=== PATIENT | male | born 1955 | race Caucasian/White ===

== ENCOUNTER 2017-06-23 12:06 | Outpatient (CLI) | payer MEDICAID ==
[2017-06-23 13:14] LABS: BASOPHILS % (AUTO) 0.3 %; EOSINOPHILS # (AUTO) 0.1 10^3/uL (0.0-0.7); EOSINOPHILS % (AUTO) 1.6 %; HCT - HEMATOCRIT 42.6 % (42.0-52.0); HGB - HEMOGLOBIN 14.4 g/dL (14.0-18.0); LYMPHOCYTES % (AUTO) 43.2 %; MEAN CORPUSCULAR HEMOGLOBIN 30.8 pg (27.0-31.0); MEAN CORPUSCULAR HGB CONC 33.8 g/dL (32.0-36.0); MEAN CORPUSCULAR VOLUME 91.2 fL (80.0-94.0); MEAN PLATELET VOLUME 8.5 fL (7.4-11.4); MONOCYTES # (AUTO) 0.6 10^3/uL (0.0-1.0); MONOCYTES % (AUTO) 8.9 %; NEUTROPHILS # (AUTO) 3.2 10^3/uL (1.5-6.6); NUCLEATED RED BLOOD CELLS AUTO 0.1 /100WBC; RED BLOOD COUNT 4.67 10^6/uL (4.70-6.10); RED CELL DISTRIBUTION WIDTH 13.9 % (12.0-15.0); UNCORRECTED WHITE BLOOD COUNT 6.9 x10^3/uL; WHITE BLOOD COUNT 6.9 x10^3/uL (4.8-10.8)
[2017-06-23 13:35] LABS: HEMOGLOBIN A1C 0.56 g/dL
[2017-06-23 13:46] LABS: ALBUMIN/GLOBULIN RATIO 1.3 (1.0-2.2); BILIRUBIN,TOTAL 0.9 mg/dL (0.2-1.0); BUN - BLOOD UREA NITROGEN 21 mg/dL (6-20); CALCIUM 9.4 mg/dL (8.5-10.3); CARBON DIOXIDE - CO2 26 mmol/L (21-32); CHLORIDE 106 mmol/L (101-111); CHOL/HDL RATIO 3.3 (<5.0); CHOLESTEROL 251 mg/dL; GFR - MDRD 76 (>89); GLUCOSE 87 mg/dL (70-100); HDL CHOLESTEROL 75 mg/dL; LDL/HDL RATIO 2.1 (<3.6); POTASSIUM 4.5 mmol/L (3.5-5.0); SODIUM 141 mmol/L (135-145); TOTAL PROTEIN 7.5 g/dL (6.7-8.2); TRIGLYCERIDES 97 mg/dL; VLDL CHOLESTEROL 19 mg/dL
== END 2017-06-23 12:07 | disposition home or self-care (01) ==
LOC: LAB.WCP 12:06
PROVIDERS: ATTEND Family Medicine
DX: Z00.00 Encounter for general adult medical examination without abnormal findings (principal); Z12.5 Encounter for screening for malignant neoplasm of prostate
CPT/HCPCS: 36415; 80053; 80061; 83036; 84153; 84443; 85025

== ENCOUNTER 2017-10-18 08:05 | Day surgery (SDC) | payer MEDICAID ==
[2017-10-18] MEDS ORDERED: LACTATED RINGERS 1,000 ML IV ONE (08:48)
[2017-10-18] MEDS ORDERED: fentaNYL 100 MCG/2 ML VIAL IVP ONE (09:20)
[2017-10-18] MEDS ORDERED: MIDAZOLAM 2 MG/2 ML VIAL IVP ONE (09:20)
[2017-10-18 10:14] VITALS: BP 132/78
== END 2017-10-18 08:06 | disposition home or self-care (01) ==
LOC: SDS 08:05
PROVIDERS: ATTEND Surgery
PROC: 0DJD8ZZ Inspection of Lower Intestinal Tract, Via Natural or Artificial Opening Endoscopic (ICD-10-PCS; principal; 2017-10-18 09:15)
DX: Z12.11 Encounter for screening for malignant neoplasm of colon (principal); K57.30 Diverticulosis of large intestine without perforation or abscess without bleeding; I10 Essential (primary) hypertension; Z87.891 Personal history of nicotine dependence
CPT/HCPCS: 45378; J7120

== ENCOUNTER 2018-08-22 15:57 | Outpatient (CLI) | payer OTHER, MEDICAID ==
--- NOTE | 2018-08-23 10:29 | CT Report ---
Reason: ASEPTIC NECROSIS, SCAPHOID Procedure Date: 08/22/2018 Accession Number: [id number] / [id number] Procedure: CT - Upper Extremity Right W/O CPT Code: FULL RESULT: EXAM: RIGHT CLAVICLE/STERNOCLAVICULAR JOINT CT WITHOUT CONTRAST EXAM DATE: 08/22/2018 04:42 PM. CLINICAL HISTORY: Aseptic necrosis, scaphoid. COMPARISON: WRIST 4 VIEW RT 07/19/2018 10:45 AM. TECHNIQUE: Thin-section axial images were acquired of the clavicle(s)/sternoclavicular joint(s) without contrast. Post-processing: Coronal and sagittal reformats. Other: None. In accordance with CT protocol optimization, one or more of the following dose reduction techniques were utilized for this exam: automated exposure control, adjustment of mA and/or KV based on patient size, or use of iterative reconstructive technique. FINDINGS: Bones and Articular Surfaces: Chronic appearing well-corticated fracture of the scaphoid waist with pseudoarthrosis. Separate transverse oblique fracture through the proximal pole of the scaphoid at the proximal dorsal aspect. No bridging across this fracture and slight sclerosis at the fracture margins. Potentially a subacute or possibly chronic fracture. Widening of the scapholunate interval. Patchy areas of subcortical cyst formation involving all of the carpal bones. Small amount of sclerotic change involving the proximal fragments of the scaphoid may reflect some degree of AVN. No acute fracture demonstrated. Mild joint space narrowing and marginal osteophytes at the fifth CMC articulation as well as the first MCP joint. Joint space narrowing with subchondral sclerosis and osteophyte at the radiolunate and to a lesser degree radioscaphoid articulations. Mild negative ulnar variance. Soft Tissues: The visualized flexor and extensor tendons appear intact. No significant muscle atrophy or fatty replacement within the field of view. IMPRESSION: 1. 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 2. Separate oblique fracture at the proximal pole of the scaphoid at the dorsal aspect. This fracture could be subacute or chronic. 3. Scapholunate diastases. 4. Osteoarthritis as described. [facility] ADDENDUM: 09/07/18 18:05 Correction: Exam title: CT of the right wrist without contrast. TECHNIQUE: Thin section axial noncontrast CT images obtained through the wrist with sagittal and coronal image reformatting. In accordance with CT protocol optimization, one or more of the following dose reduction techniques were utilized for this exam: automated exposure control, adjustment of mA and/or KV based on patient size, or use of iterative reconstructive technique.
== END 2018-08-22 15:58 | disposition home or self-care (01) ==
LOC: DI 15:57
PROVIDERS: ATTEND Orthopaedic Surgery
DX: S62.001A Unspecified fracture of navicular [scaphoid] bone of right wrist, initial encounter for closed fracture (principal); M19.031 Primary osteoarthritis, right wrist; M87.039 Idiopathic aseptic necrosis of unspecified carpus

== ENCOUNTER 2022-09-11 15:19 | Emergency (ER) | payer MEDICARE, MEDICAID ==
[2022-09-11 16:07] LABS: BASOPHILS # (AUTO) 0.1 10^3/uL (0.0-0.1); BASOPHILS % (AUTO) 0.7 %; EOSINOPHILS # (AUTO) 0.1 10^3/uL (0.0-0.7); EOSINOPHILS % (AUTO) 0.7 %; HCT - HEMATOCRIT 38.9 % (42.0-52.0); HGB - HEMOGLOBIN 12.5 g/dL (14.0-18.0); LYMPHOCYTES # (AUTO) 3.4 10^3/uL (1.5-3.5); LYMPHOCYTES % (AUTO) 36.5 %; MEAN CORPUSCULAR HEMOGLOBIN 30.9 pg (27.0-31.0); MEAN CORPUSCULAR HGB CONC 32.1 g/dL (32.0-36.0); MEAN PLATELET VOLUME 9.7 fL (7.4-11.4); MONOCYTES # (AUTO) 1.1 10^3/uL (0.0-1.0); MONOCYTES % (AUTO) 11.8 %; NEUTROPHILS # (AUTO) 4.6 10^3/uL (1.5-6.6); PLT - PLATELET COUNT 235 10^3/uL (130-450); RED BLOOD COUNT 4.05 10^6/uL (4.70-6.10); RED CELL DISTRIBUTION WIDTH 11.9 % (12.0-15.0); WHITE BLOOD COUNT 9.2 x10^3/uL (4.8-10.8)
--- NOTE | 2022-09-11 16:27 | XRAY Report ---
PROCEDURE: Chest 1 View X-Ray INDICATIONS: Chest Pain TECHNIQUE: One view of the chest was acquired. COMPARISON: None. FINDINGS: Surgical changes and devices: None. Lungs and pleura: No pleural effusions or pneumothorax. Lungs are clear. Mediastinum: Mediastinal contours appear normal. Heart size is normal. Bones and chest wall: No suspicious bony lesions. Age-appropriate degenerative changes are seen. O verlying soft tissues appear unremarkable. IMPRESSION: Unremarkable single view chest for age. Reviewed by: Taye Merchant MD on 09/11/2022 3:26 PM [facility] Approved by: Taye Merchant MD on 09/11/2022 3:26 PM [facility] Station ID: [id number]
[2022-09-11 16:43] LABS: ALBUMIN 3.4 g/dL (3.2-5.5); BILIRUBIN,TOTAL 0.9 mg/dL (0.2-1.0); CALCIUM 9.1 mg/dL (8.5-10.3); CREATININE 0.9 mg/dL (0.6-1.2); POTASSIUM 4.6 mmol/L (3.5-5.0); TOTAL PROTEIN 6.9 g/dL (6.7-8.2)
--- NOTE | 2022-09-11 18:37 | ED Physician Documentation ---
History of Present Illness - Stated complaint Stated Complaint: CHEST PRESSURE/PX - Chief complaint Chief Complaint: Resp - History obtained from History obtained from: Patient, Family - Additonal information Additional information: This is a 67-year-old male with a past medical history of daily alcohol use, who presents with right chest wall pain after a fit of coughing. Patient states he has had a cough for about a year, without any improvement or worsening, he denies any shortness of breath or the other chest pain and pain is localized to the right chest wall. He had a fit of coughing several days ago in which he started to develop right chest wall pain. The pain does not radiate, and is not exertional and he denies shortness of breath.He has not had a fever, congestion or other URI symptoms.He is also reporting an 80 pound unintentional weight loss over the last several months. He states he has not changed his diet at all, no new exercising or other concerns. He denies any change in bowel or bladder, No night sweats, no fever or chills. is also reporting that patient has a generalized tremor, its worse in the morning but present frequently throughout the day. It is in both arms, and seems more intentional although can happen at any point time. He has not had any gait disturbance, no falls, No confusion or change in mental status. He has not had any head injuries. The patient states he drinks about 3 gin and tonics a day though states he sometimes drinks the entire bottle and has done so every day, he has not attempted to stop. concerned as the patient has not seen doctor in about 10 to 15 years. Review of Systems Ten Systems: 10 systems reviewed and negative PD PAST MEDICAL HISTORY - Past Medical History Cardiovascular: None Respiratory: None Endocrine/Autoimmune: None GI: None : None HEENT: None Psych: None Musculoskeletal: Osteoarthritis Derm: None Other Past Medical History: Excessive alcohol use - Present Medications Home Medications: Ambulatory Orders Medication Instructions Recorded Confirmed No Known Home Medications 10/17/17 10/18/17 - Allergies Allergies/Adverse Reactions: Allergies Allergy/AdvReac Type Severity Reaction Status Date / Time No Known Drug Allergies Allergy Verified 10/17/17 13:54 PD ED PE NORMAL - Vitals Vital signs reviewed: Yes - General General: Alert and oriented X 3, No acute distress, Well developed/nourished - HEENT HEENT: Atraumatic, PERRL, EOMI, Moist mucous membranes, Pharynx benign - Neck Neck: Supple, no meningeal sign, No adenopathy - Cardiac Cardiac: RRR, No murmur, No gallop, No rub - Respiratory Respiratory: No respiratory distress, Clear bilaterally - Abdomen Abdomen: Normal bowel sounds, Soft, Non tender, Non distended - Back Back: No CVA TTP, No spinal TTP - Derm Derm: Normal color, Warm and dry, No rash - Extremities Extremities: No deformity, No tenderness to palpate, Normal ROM s pain, No edema, No calf tenderness / cord, Other (Bilateral upper extremity tremor) - Neuro Neuro: Alert and oriented X 3 Eye Opening: Spontaneous Motor: Obeys Commands Verbal: Oriented GCS Score: 15 Results - Vitals Vitals: Vital Signs - 24 hr 09/11/22 09/11/22 09/11/22 15:28 15:42 17:42 Temperature 36.8 C 36.8 C Heart Rate 75 75 68 Respiratory 18 18 16 Rate Blood Pressure 163/61 H 163/61 H 153/85 H O2 Saturation 100 100 98 09/11/22 19:00 Temperature Heart Rate 63 Respiratory 16 Rate Blood Pressure 150/80 H O2 Saturation 98 Oxygen O2 Source Room air - Labs Labs: Laboratory Tests 09/11/22 09/11/22 09/11/22 16:03 16:03 16:03 WBC 9.2 RBC 4.05 L Hgb 12.5 L Hct 38.9 L MCV 96.0 H MCH 30.9 MCHC 32.1 RDW 11.9 L Plt Count 235 MPV 9.7 Neut # (Auto) 4.6 Lymph # (Auto) 3.4 Leon # (Auto) 1.1 H Eos # (Auto) 0.1 Baso # (Auto) 0.1 Absolute Nucleated RBC 0.00 Nucleated RBC % 0.0 Sodium 137 Potassium 4.6 Chloride 101 Carbon Dioxide 28 Anion Gap 8.0 BUN 19 Creatinine 0.9 Estimated GFR (MDRD) 85 L Glucose 110 H Calcium 9.1 Total Bilirubin 0.9 AST 24 ALT 20 Alkaline Phosphatase 65 Troponin I High Sens 2.8 Total Protein 6.9 Albumin 3.4 Globulin 3.5 Albumin/Globulin Ratio 1.0 Lipase 40 PD MEDICAL DECISION MAKING - ED course Complexity details: reviewed results, re-evaluated patient, considered differential, d/w patient, d/w family ED course: This is a 67-year-old male with past medical history of daily alcohol use who presented Primarily with the right chest wall pain after a fit of coughing but is also reporting a bout year-long history of cough as well as weight loss and generalized upper extremity tremors. He is well-appearing on physical exam with stable vital signs though blood pressure somewhat elevated. He is actually well on room air. We obtained an x-ray which is negative for any acute findings, his EKG and troponin are also negative. Generalized labs are stable. Given his weight loss however and daily alcohol use I did have concern for malignancy this is a pain and a CT abdomen pelvis which showed a possible bladder mass or irregularity. The patient was advised of these findings and recommended that he follow-up outpatient with urology. He also does not have a primary care provider and needs to establish 1 given his multiple issues that are long-term including tremor, weight loss and chronic cough.The patient does have a long history Of daily alcohol use no no signs of withdrawal on exam today, he was encouraged to consider an alcohol rehab program or titrating himself down off alcohol. I reviewed return precautions in detail with the patient. Departure - Departure Disposition: 01 Home, Self Care Clinical Impression: Chest wall pain, Bladder mass, Excessive drinking of alcohol Condition: Good Instructions: ED Strain Chest Wall Follow-Up: [facility] [Provider Group] Nadia Nair MD [Physician No Access] - Comments: You presented due to right chest wall pain after coughing. I suspect this is a muscle strain as there are no acute findings on your chest x-ray or work-up today. We did have her do additional imaging due to your unexplained weight loss. The CT scan of your abdomen showed a possible area of irregularity in the bladder which will need to be followed up by urology.This can be done on an outpatient basis but should be done as soon as you are able to schedule an appointment. He will also need to establish care with a primary care provider, you may start with the [facility] primary care clinic to establish care with a primary doctor. I have also listed a urologist below. Discharge Date/Time: 09/11/22 19:26
[2022-09-11] MEDS ORDERED: iohexoL-300 100 ML VIAL ONE (18:41)
[2022-09-11] MEDS ORDERED: iohexoL-300 100 ML VIAL IVP ONE (19:03)
--- NOTE | 2022-09-11 19:08 | CT Report ---
PROCEDURE: ABDOMEN/PELVIS W INDICATIONS: unintentional 80lb weight loss, eval for malignanc CONTRAST: 100ml omni 200 TECHNIQUE: After the administration of intravenous contrast, 5 mm thick sections acquired from the diaphragms to the symphysis. 5 mm thick coronal and sagittal reformats were acquired. For radiation dose reducti on, the following was used: automated exposure control, adjustment of mA and/or kV according to adrián ent size. COMPARISON: None. FINDINGS: Image quality: Excellent. ABDOMEN: Lung bases: Lung bases are clear. Heart size is normal. Solid organs: Liver and spleen are normal in size and enhancement. Gallbladder normal. Biliary sys tem is non dilated. Pancreas enhances normally. No adrenal nodules. Kidneys demonstrate normal siz e and enhancement, without hydronephrosis. Peritoneum and bowel: Bowel loops demonstrate normal wall thickness and caliber. No free fluid or a ir. Nodes and vessels: No retroperitoneal or mesenteric adenopathy by size criteria. Aorta and inferior vena cava are normal in size. Miscellaneous: No ventral hernias. PELVIS: Genitourinary: Asymmetric thickened urinary bladder wall most thickened anteriorly and superiorly. Miscellaneous: No inguinal hernias or adenopathy. Bones: No suspicious bony lesions. No vertebral body compression fractures. IMPRESSION: Asymmetric urinary bladder wall thickening suspicious for bladder carcinoma. Urology referral recomme nded. Reviewed by: Urbano Juarez MD on 09/11/2022 7:07 PM PST Approved by: Urbano Juarez MD on 09/11/2022 7:07 PM PST Station ID: [id number]
[2022-09-11 19:11] VITALS: BP 150/80
== END 2022-09-11 19:26 | disposition home or self-care (01) ==
LOC: ED 15:19
DX: R07.89 Other chest pain (principal); N32.9 Bladder disorder, unspecified
CPT/HCPCS: 36415; 71045; 74177; 80053; 83690; 84484; 85025; 93005; 99284; Q9967

== ENCOUNTER 2022-10-22 09:28 | Outpatient (CLI) | payer MEDICARE, MEDICAID ==
[2022-10-22 09:40] LABS: BASOPHILS # (AUTO) 0.1 10^3/uL (0.0-0.1); BASOPHILS % (AUTO) 1.4 %; EOSINOPHILS # (AUTO) 0.1 10^3/uL (0.0-0.7); EOSINOPHILS % (AUTO) 1.1 %; HCT - HEMATOCRIT 40.8 % (42.0-52.0); HGB - HEMOGLOBIN 13.4 g/dL (14.0-18.0); LYMPHOCYTES # (AUTO) 3.3 10^3/uL (1.5-3.5); LYMPHOCYTES % (AUTO) 51.7 %; MEAN CORPUSCULAR HEMOGLOBIN 31.6 pg (27.0-31.0); MEAN CORPUSCULAR HGB CONC 32.8 g/dL (32.0-36.0); MEAN CORPUSCULAR VOLUME 96.2 fL (80.0-94.0); MEAN PLATELET VOLUME 9.7 fL (7.4-11.4); MONOCYTES # (AUTO) 0.6 10^3/uL (0.0-1.0); MONOCYTES % (AUTO) 9.3 %; NEUTROPHILS # (AUTO) 2.3 10^3/uL (1.5-6.6); NEUTROPHILS % (AUTO) 36.3 %; PLT - PLATELET COUNT 204 10^3/uL (130-450); RED BLOOD COUNT 4.24 10^6/uL (4.70-6.10); RED CELL DISTRIBUTION WIDTH 12.7 % (12.0-15.0); WHITE BLOOD COUNT 6.4 x10^3/uL (4.8-10.8)
[2022-10-22 10:19] LABS: ALBUMIN 3.9 g/dL (3.2-5.5); ALBUMIN/GLOBULIN RATIO 1.1 (1.0-2.2); ALKALINE PHOSPHATASE 55 IU/L (42-121); ALT ALANINE AMINOTRANSFERASE 17 IU/L (10-60); AST ASPARTATE AMINOTRANSFERASE 22 IU/L (10-42); BILIRUBIN,TOTAL 0.8 mg/dL (0.2-1.0); BUN - BLOOD UREA NITROGEN 24 mg/dL (6-20); CALCIUM 9.7 mg/dL (8.5-10.3); CARBON DIOXIDE - CO2 27 mmol/L (21-32); CHLORIDE 102 mmol/L (101-111); CHOL/HDL RATIO 2.3 (<5.0); CHOLESTEROL 234 mg/dL; GFR - MDRD 75 (>89); GLUCOSE 91 mg/dL (70-100); HDL CHOLESTEROL 104 mg/dL; LDL CHOLESTEROL,CALCULATED 118 mg/dL; LDL/HDL RATIO 1.1 (<3.6); POTASSIUM 4.6 mmol/L (3.5-5.0); SODIUM 138 mmol/L (135-145); TOTAL PROTEIN 7.4 g/dL (6.7-8.2); TRIGLYCERIDES 59 mg/dL; VLDL CHOLESTEROL 12 mg/dL
[2022-10-22 10:23] LABS: THYROID STIMULATING HORMONE 1.03 uIU/mL (0.34-5.60)
== END 2022-10-22 09:29 | disposition home or self-care (01) ==
LOC: LAB 09:28
PROVIDERS: ATTEND Nurse Practitioner Family
DX: I10 Essential (primary) hypertension (principal); Z13.220 Encounter for screening for lipoid disorders; Z12.5 Encounter for screening for malignant neoplasm of prostate; R93.41 Abnormal radiologic findings on diagnostic imaging of renal pelvis, ureter, or bladder
CPT/HCPCS: 36415; 80053; 80061; 84443; 85025; G0103; 83721; 84153

== ENCOUNTER 2024-04-19 08:16 | Day surgery (SDC) | payer MEDICAID, MEDICARE ==
[2024-04-19] MEDS: LACTATED RINGERS 1,000 ML IV ONE ×2 (08:30→10:12)
--- NOTE | 2024-04-19 08:51 | ANESTHESIA ---
Pre-Anesthesia VS, & Labs - Diagnosis positive cologuard - Procedure colonoscopy Vital Signs: Temp Pulse Resp BP Pulse Ox O2 Flow Rate 36.2 C L 68 19 159/99 H 100 04/19/24 08:30 04/19/24 08:30 04/19/24 08:30 04/19/24 08:30 04/19/24 08:30 Height: 5 ft 10 in Weight (kg): 82.4 kg Body Mass Index: 26.0 BMI Classification: Overweight - NPO >8 hours Home Medications and Allergies Home Medications: Ambulatory Orders Losartan [Cozaar] 50 mg PO DAILY 04/18/24 Losartan [Cozaar] 50 mg PO DAILY 04/18/24 Allergies/Adverse Reactions: Allergies Allergy/AdvReac Type Severity Reaction Status Date / Time No Known Drug Allergies Allergy Verified 10/17/17 13:54 Anes History & Medical History - Anesthetic History Anesthesia Complications: reports: No previous complications - Medical History Cardiovascular: reports: Hypertension Pulmonary: reports: None Gastrointestinal: reports: None Urinary: reports: None Neuro: reports: None Musculoskeletal: reports: None Endocrine/Autoimmune: reports: None Skin: reports: None Smoking Status: Never smoker Psychosocial: reports: No issues indicated History of Cancer?: No - Surgical History General: reports: Cholecystectomy, Colonoscopy Urologic: reports: Bladder surgery Orthopedic: reports: Carpal Tunnel surgery Exam General: Alert, Oriented x3, Cooperative, No acute distress Dental: WNL Mouth Openin Fingerbreadth Neck Mobility: Normal Mallampati classification: III Thyromental Distance: 4-6 cm Mental/Cognitive Status: Alert/Oriented X3, Normal for patient Plan Anesthesia Type: General, Total IV Consent for Procedure(s) Verified and Reviewed: Yes Code Status: Attempt Resuscitation ASA classification: 2-Mild systemic disease Is this case an emergency?: No
[2024-04-19] MEDS ORDERED: PROPOFOL 500 MG/50 ML 500 MG/50 ML VIAL ONE (09:07)
[2024-04-19] MEDS ORDERED: LIDOCAINE-PF 2% 10 ML AMP SUBQ ONE (09:07)
--- NOTE | 2024-04-19 09:14 | HISTORY & PHYSICAL EXAMINATION ---
Chief Complaint - Chief Complaint Chief Complaint: here for colonoscopy History of Present Illness - History Obtained From Records Reviewed: yes History obtained from: pt Exam Limitations: none - History of Present Illness HPI Comment/Other: colonoscopy 2018 no polyps. no gi symptoms. recent cologuard positive. History - Past Medical History Cardiovascular: reports: Hypertension Respiratory: reports: None Neuro: reports: None Endocrine/Autoimmune: reports: None GI: reports: None : reports: None HEENT: reports: None Psych: reports: None Musculoskeletal: reports: None Derm: reports: None MRSA Hx?: No - Past Surgical History General: reports: Cholecystectomy, Colonoscopy Ortho: reports: Carpal Tunnel surgery Meds/Allgy - Home Medications Home Medications: Ambulatory Orders Medication Instructions Recorded Confirmed Losartan [Cozaar] 50 mg PO DAILY 04/18/24 04/19/24 - Allergies Allergies/Adverse Reactions: Allergies Allergy/AdvReac Type Severity Reaction Status Date / Time No Known Drug Allergies Allergy Verified 10/17/17 13:54 Review of Systems - Other Findings Other Findings: 10 pt ros as above otherwise unremarkable Exam - Vital Signs Vital Signs: Vital Signs x48h Temp Pulse Resp BP Pulse Ox 04/19/24 08:30 36.2 C L 68 19 159/99 H 100 - Physical Exam General Appearance: positive: No acute distress, Alert Eyes Bilateral: positive: PERRL, EOMI ENT: positive: No signs of dehydration Neck: positive: No JVD Respiratory: positive: No respiratory distress Cardiovascular: positive: Regular rate & rhythm Abdomen: positive: No distention Neurologic/Psychiatric: positive: Oriented x3 Conclusion/Plan - Problem List (1) Colon cancer screening Conclusion/Plan: no colon polyps in 2018. recent cologuard positive. plan colonoscopy. parq held and consent obtained
[2024-04-19] MEDS ORDERED: PROPOFOL 200 MG/20 ML VIAL IVP ONE (09:54)
[2024-04-19] MEDS ORDERED: PHENYLEPHRINE HCL 0.5 MG/5 ML AMPULE ONE (10:05)
[2024-04-19 10:56] VITALS: BP 161/86; O2SAT 98
--- NOTE | 2024-04-19 17:35 | ANESTHESIA POST OP EVALUATION ---
Anesthesia Post Eval - Post Anesthesia Eval Vitals: Last Vital Signs Temp 36.0 C L 04/19/24 10:12 Pulse 65 04/19/24 10:49 Resp 16 04/19/24 10:49 BP 161/86 H 04/19/24 10:49 Pulse Ox 98 04/19/24 10:49 O2 Flow Rate CV Function Including HR & BP: Stable Pain Control: Satisfactory Nausea & Vomiting: Negative Mental Status: Baseline Respiratory Status: Airway Patent Hydration Status: Satisfactory Anesthesia Complications: None
== END 2024-04-19 08:17 | disposition home or self-care (01) ==
LOC: SDS 08:16
PROVIDERS: ATTEND Surgery
PROC: 0DBP8ZZ Excision of Rectum, Via Natural or Artificial Opening Endoscopic (ICD-10-PCS; 2024-04-19)
PROC: 0DBH8ZZ Excision of Cecum, Via Natural or Artificial Opening Endoscopic (ICD-10-PCS; principal; 2024-04-19 09:30)
DX: Z12.11 Encounter for screening for malignant neoplasm of colon (principal); R19.5 Other fecal abnormalities; D12.0 Benign neoplasm of cecum; D12.8 Benign neoplasm of rectum; K57.30 Diverticulosis of large intestine without perforation or abscess without bleeding; K62.9 Disease of anus and rectum, unspecified
CPT/HCPCS: 45380; 45385; J2372; J7120